=== PATIENT | male | born 1965 | race Caucasian/White ===

== ENCOUNTER 2020-08-05 07:30 | Inpatient (IN) | payer OTHER ==
[~2020-08-05] VITALS: Ht 175.3 cm; Wt 112.0 kg
[2020-08-13] MEDS ORDERED: TIZANIDINE HCL4 MG PO (12:41)
[2020-08-13] MEDS ORDERED: ATORVASTATIN CA40 MG PO (12:42)
[2020-08-13] MEDS ORDERED: GABAPENTIN400 MG PO (16:25)
[2020-08-13] MEDS ORDERED: ASPIRIN EC81 MG PO (16:26)
[2020-08-13] MEDS ORDERED: METFORMIN HCL1000 MG PO (16:26)
[2020-08-26] MEDS ORDERED: LOSARTAN POTAS100 MG PO (06:56)
[2020-08-26] MEDS ORDERED: AMLODIPINE BES2.5 MG PO (06:56)
--- NOTE | 2020-08-26 19:07 | NUR ---
1814 - RECEIVED PT FROM SURGERY. PT SOMNOLENT. RESP RASPY AND FAST. O2 SAT 92% ON 10L SIMPLE MASK. POOR AIR MOVEMENT NOTED BILATERAL. UNRESPONSIVE TO STERNAL RUB OR VERBAL STIMULATION. PUPILS EQUAL, REACTIVE, BUT SLUGGISH. SURGERY NURSES AND ANESTHIALOGIST AT BEDSIDE. DR CLEMENTS HERE TO SEE PATIENT AND VERBAL ORDERS FOR LAB WORK AND CONSULT FOR HOSPITALIST TO MANAGE DM OBTAINED. AFTER SURGERY STAFF LEFT ROOM, ABG'S OBTAINED. DR APARICIO NOTIFIED AND ON THE UNIT. AFTER ASSESSING PATIENT, AND REVIEWING ABGS, DECISION MADE TO INTUBATE PATIENT. PT'S FAMILY MADE AWARE OF STATUS AND AGREEABLE TO INTUBATION. PT INTUBATED WITH 7.5 ETT AND SECURED @ 25 AT THE LIP. #16FR OGT PLACED AND VERIFIED WITH AUSCULTATION. ETT VERIFIED VIA CHEST XR. FAMILY BROUGHT BACK TO ROOM TO SEE PT. REPORT GIVEN AT BEDSIDE TO ONCOMING SHIFT.
[2020-08-26 19:24] LABS: HEMOGLOBIN 11.5 gm/dl (14.0-17.5); RED BLOOD COUNT 3.39 M/UL (4.20-5.50); WHITE BLOOD COUNT 14.5 K/UL (4.5-11.0)
[2020-08-27 00:16] LABS: BUN/CREATININE RATIO 17 (0-10)
[2020-08-27 05:28] LABS: HEMOGLOBIN 10.7 gm/dl (14.0-17.5); RED BLOOD COUNT 3.2 M/UL (4.20-5.50)
[2020-08-27 05:48] LABS: BUN/CREATININE RATIO 17 (0-10)
[2020-08-28 05:51] LABS: BUN/CREATININE RATIO 21 (0-10)
[2020-08-28 07:48] LABS: HEMOGLOBIN 8.3 gm/dl (14.0-17.5); RED BLOOD COUNT 2.51 M/UL (4.20-5.50); WHITE BLOOD COUNT 11.3 K/UL (4.5-11.0)
[2020-08-28 16:18] LABS: HEMOGLOBIN 8.4 gm/dl (14.0-17.5); RED BLOOD COUNT 2.49 M/UL (4.20-5.50); WHITE BLOOD COUNT 11.7 K/UL (4.5-11.0)
[2020-08-29 12:33] LABS: HEMOGLOBIN 8.6 gm/dl (14.0-17.5); RED BLOOD COUNT 2.52 M/UL (4.20-5.50); WHITE BLOOD COUNT 11.7 K/UL (4.5-11.0)
[2020-08-30 05:00] LABS: HEMOGLOBIN 7.7 gm/dl (14.0-17.5); RED BLOOD COUNT 2.3 M/UL (4.20-5.50); WHITE BLOOD COUNT 9.6 K/UL (4.5-11.0)
== END 2020-08-31 12:46 | disposition home or self-care (01) | DRG 459 ==
LOC: ZOBSOF 08-26 06:20 → CCU 08-26 18:07 → M/S 08-29 15:09
PROVIDERS: Internal Medicine; ADMIT Orthopaedic Surgery
PROC: 0SB20ZZ Excision of Lumbar Vertebral Disc, Open Approach (ICD-10-PCS; 2020-08-26)
PROC: 0SB40ZZ Excision of Lumbosacral Disc, Open Approach (ICD-10-PCS; 2020-08-26)
PROC: 0SG30AJ Fusion of Lumbosacral Joint with Interbody Fusion Device, Posterior Approach, Anterior Column, Open Approach (ICD-10-PCS; 2020-08-26)
PROC: 5A1935Z Respiratory Ventilation, Less than 24 Consecutive Hours (ICD-10-PCS; 2020-08-26)
PROC: 0BH17EZ Insertion of Endotracheal Airway into Trachea, Via Natural or Artificial Opening (ICD-10-PCS; principal; 2020-08-26 07:30)
PROC: 0SG10AJ Fusion of 2 or more Lumbar Vertebral Joints with Interbody Fusion Device, Posterior Approach, Anterior Column, Open Approach (ICD-10-PCS; 2020-08-26 07:30)
DX: M48.061 Spinal stenosis, lumbar region without neurogenic claudication (principal); J96.01 Acute respiratory failure with hypoxia; J96.02 Acute respiratory failure with hypercapnia; N17.9 Acute kidney failure, unspecified; E87.2 Acidosis; D62 Acute posthemorrhagic anemia; E66.2 Morbid (severe) obesity with alveolar hypoventilation; E87.5 Hyperkalemia; R50.9 Fever, unspecified; E11.65 Type 2 diabetes mellitus with hyperglycemia; R00.0 Tachycardia, unspecified; M47.26 Other spondylosis with radiculopathy, lumbar region; D69.6 Thrombocytopenia, unspecified; Z20.822 Contact with and (suspected) exposure to COVID-19; J44.9 Chronic obstructive pulmonary disease, unspecified; G47.33 Obstructive sleep apnea (adult) (pediatric); I10 Essential (primary) hypertension; E78.5 Hyperlipidemia, unspecified; Z79.82 Long term (current) use of aspirin; Z79.899 Other long term (current) drug therapy; Z79.84 Long term (current) use of oral hypoglycemic drugs; Z87.891 Personal history of nicotine dependence; Z68.36 Body mass index [BMI] 36.0-36.9, adult
CPT/HCPCS: 31500; 36415; 36600; 71045; 72070; 72100; 72110; 76000; 80048; 81001; 82803; 82962; 83605; 84520; 85025; 85027; 85610; 85730; 86850; 86900; 86901; 87040; 94002; 94003; 94640; 94760; 97110-GP-CQ; 97116-GP-CQ; 97162; 97165; 97530-GP-CQ; 97535; C1713; C1762; C1781; J0330; J0610; J0690; J1040; J1100; J1170; J2001; J2250; J2405; J2704; J2920; J2930; J3010; J3370; J7030; J7040; J7120

== ENCOUNTER → 2020-08-13 | Outpatient (CLI) | payer OTHER ==
[~2020-08-13] MED LIST: AMLODIPINE BES2.5 MG PO; ASPIRIN EC81 MG PO; ATORVASTATIN CA40 MG PO; GABAPENTIN400 MG PO; LOSARTAN POTAS100 MG PO; METFORMIN HCL1000 MG PO; TIZANIDINE HCL4 MG PO
[2020-08-13 11:56] LABS: HEMOGLOBIN 14.7 gm/dl (14.0-17.5); RED BLOOD COUNT 4.23 M/UL (4.20-5.50); WHITE BLOOD COUNT 5.8 K/UL (4.5-11.0)
[2020-08-13 12:10] LABS: BUN/CREATININE RATIO 20 (0-10)
== END ==
LOC: OPSV2 10:53 → EDSTATUS 11:30
PROVIDERS: Orthopaedic Surgery
DX: Z01.818 Encounter for other preprocedural examination (principal); M47.26 Other spondylosis with radiculopathy, lumbar region; M48.061 Spinal stenosis, lumbar region without neurogenic claudication; R00.0 Tachycardia, unspecified
CPT/HCPCS: 36415; 71046; 80048; 83036; 85027; 87081; 87086; 93005

== ENCOUNTER → 2020-08-25 | Outpatient (CLI) | payer OTHER | LOC: LAB 11:10 | DX: Z01.812 Encounter for preprocedural laboratory examination (principal); M47.26 Other spondylosis with radiculopathy, lumbar region; M48.061 Spinal stenosis, lumbar region without neurogenic claudication | CPT/HCPCS: 36415; 84520; 85610; 85730; 86850; 86900; 86901 ==

== ENCOUNTER → 2021-07-15 | Outpatient (CLI) | payer OTHER | LOC: KOH-I 08:50 | DX: M96.0 Pseudarthrosis after fusion or arthrodesis (principal); M48.061 Spinal stenosis, lumbar region without neurogenic claudication; M51.25 Other intervertebral disc displacement, thoracolumbar region | CPT/HCPCS: 72131 ==